=== PATIENT | female | born 1965 | race Caucasian/White ===

== ENCOUNTER → 2018-03-21 | Outpatient (CLI) | payer MEDICAID ==
[~2018-03-21] MED LIST: ACET325T14 PO; ALIS1TAB4 PO; ALPR0.5T6 PO; CEPH-368 PO; CHOL20002 PO; CYCL-259 PO; LINA145C PO; OXYC-307 PO; VITAMIN C PO
== END | disposition home or self-care (01) ==
LOC: CFH 11:05
PROVIDERS: ATTEND Nurse Practitioner Family
DX: Z12.31 Encounter for screening mammogram for malignant neoplasm of breast (principal)
CPT/HCPCS: 77067